=== PATIENT | male | born 1970 | race Two or more races ===

== ENCOUNTER 2016-04-26 10:11 | Day surgery (SDC) | payer OTHER ==
[2016-04-26] MEDS ORDERED: LIDOCAINE 2%/EPINEPHRINE INJ 20 ML VIAL ONE (10:58)
[2016-04-26] MEDS ORDERED: OXYMETAZOLINE HCL 0.05% NASAL SPRAY 15 ML BOTTLE ONE (10:58)
[2016-04-26] MEDS ORDERED: DEXAMETHASONE SOD PHOSPHATE INJ 4 MG/1 ML VIAL ONE (11:00)
[2016-04-26] MEDS ORDERED: MIDAZOLAM 2 MG/2 ML INJ ONE (11:00)
[2016-04-26] MEDS ORDERED: PROPOFOL INJ 200 MG/20 ML VIAL IV ONE (11:01)
[2016-04-26] MEDS ORDERED: ONDANSETRON HCL INJ/PF 4 MG/2 ML SDV ONE (11:01)
[2016-04-26] MEDS ORDERED: ACETAMINOPHEN 100 ML IV ONE (11:01)
[2016-04-26] MEDS ORDERED: SUCCINYLCHOLINE CHLORIDE INJ 200 MG/10 ML VIAL ONE (11:01)
[2016-04-26] MEDS ORDERED: FENTANYL CITRATE INJ/PF 100 MCG/2 ML AMPUL ONE ×2 (11:02)
--- NOTE | 2016-04-26 13:23 | OPERATIVE REPORT E ---
Operative Report NAME: AFTAB MEMBRENO : 1970 AGE: 45Y DATE OF SURGERY: 04/26/2016 ROOM: INDICATIONS FOR THE PROCEDURE: This is a 45-year-old male with a history of nasal obstruction. Please see his outpatient medical record for complete details regarding his history and examination. PREOPERATIVE DIAGNOSES: 1. Deviated nasal septum. 2. Nasal obstruction, bilateral. 3. Inferior turbinate hypertrophy, bilateral. 4. Synechiae between the septum and inferior turbinate on the left. POSTOPERATIVE DIAGNOSES: 1. Deviated nasal septum. 2. Nasal obstruction, bilateral. 3. Inferior turbinate hypertrophy, bilateral. 4. Synechia between the septum and inferior turbinate on the left. PROCEDURES PERFORMED: 1. Septoplasty. 2. Fracture of inferior nasal turbinates. 3. Submucosal resection of inferior turbinates. 4. Reduction of synechia in left nasal cavity. FINDINGS: 1. Deviated septum. 2. Inferior turbinate hypertrophy. 3. Synechia between the septum and the left inferior turbinate. PRIMARY SURGEON: YANY BECKER M.D. ESTIMATED BLOOD LOSS: 15 mL. DESCRIPTION OF PROCEDURE: After properly identifying the patient, obtaining informed consent, and verifying surgical site, the patient was brought to the main operating room and placed in the supine position and general endotracheal anesthesia was obtained in a standard fashion. A surgical timeout was then performed. The nose was then prepped in the usual fashion with topical Afrin and cotton pledgets as well as direct infiltration of the nasal septum and inferior turbinates with 2% lidocaine with 1:100,000 of epinephrine. The patient was then draped in the usual manner for nasal surgery. A hemitransfixion incision was sharply made and a mucoperichondrial flap was partially raised down to the level of where the synechia was. The synechia between the septum and inferior turbinate was then sharply divided. At this point in time, the septum was able to move fairly freely back into the midline. Next, the hemitransfixion incision was closed and a whipstitch was placed back and forth across the septum to reapproximate the mucoperichondrial flap. Next, each inferior turbinate was treated. An incision was made on the head of each inferior turbinate. Soft tissue was raised off of the bony turbinate and the soft tissue was then reduced with the microdebrider. Each inferior turbinate was then outfractured using the [place] elevator. Ndiaye splints soaked with Bacitracin were then placed into each nasal cavity and sewn in place with a Prolene suture. The patient was then returned to anesthesia. He was awoken in the operating room and taken to the PACU in a stable condition, having tolerated the procedure well. DICTATING PHYSICIAN: YANY BECKER M.D. [id number] PHY#: [id number] ID: [id number] JOB#: [id number] ACCT: [id number] cc:YANY BECKER M.D. >
== END 2016-04-26 13:55 | disposition home or self-care (01) ==
LOC: SC 10:11
PROVIDERS: ATTEND Otolaryngology
PROC: 09TL8ZZ Resection of Nasal Turbinate, Via Natural or Artificial Opening Endoscopic (ICD-10-PCS; 2016-04-26)
PROC: 09BM4ZZ Excision of Nasal Septum, Percutaneous Endoscopic Approach (ICD-10-PCS; principal; 2016-04-26 11:15)
DX: J34.2 Deviated nasal septum (principal); J34.3 Hypertrophy of nasal turbinates; J34.89 Other specified disorders of nose and nasal sinuses; M19.90 Unspecified osteoarthritis, unspecified site; G47.30 Sleep apnea, unspecified; Z79.1 Long term (current) use of non-steroidal anti-inflammatories (NSAID)
CPT/HCPCS: 30520; 30140; J2250; J1100; J3010; J3490 ×2; J0330; J2405; J2704; J0131; 160